=== PATIENT | male | born 1985 | race Caucasian/White ===

== ENCOUNTER 2023-10-10 19:21 | Emergency (ER) | payer OTHER, SELFPAY ==
[2023-10-10 19:22] VITALS: BP 158/91; PULSE 95; RESP 18; TEMP 36.6; O2SAT 98; BMI 27.5
--- NOTE | 2023-10-10 19:32 | EDS_ITS ---
HPI History of Present Illness Chief Complaint: Upper Extremity Injury Narrative Narrative: 38-year-old male past medical history of hypertension, more ambidextrous to [id number] presents with injury to his right fourth digit that he sustained at work. He was hitting the end of a wrench with a hammer and thinks that his fourth digit got pinched between the end of the hammer and the wrench. He hit the very tip and noticed a small laceration at the top. He put a Band- Aid on it, went home, took ibuprofen, and noticed that the laceration was still oozing . He denies other injury. He believes his tetanus immunization was within the last 5 years when he had stitches placed in his chin. He presents because of the injury to his right fourth fingertip. [facility] Medical History Hand crush injury Allergy/AdvReac Type Severity Reaction Status Date / Time No Known Allergies Allergy Verified 10/10/23 19:25 Social History Smoking Status: Smoker, status unknown ROS ROS ED ROS Narrative Constitutional: No fever, no chills. HEENT: No sore throat. No neck pain. No loss of vision. No rhinorrhea. Cardiovascular: No chest pain. No palpitations. No pedal edema. Respiratory: No cough, no shortness of breath. Abdominal: No abdominal pain. No nausea. No vomiting. Genitourinary: No dysuria. No hematuria. Musculoskeletal: No myalgias. Positive right fourth fingertip laceration and pain/throbbing after injury Neurologic: No headaches. No dizziness. No lightheadedness. Skin: No rash. No change in color. 0.5 cm laceration to tip of right fourth digit, no active bleeding. Psychiatric: No depression. No anxiety. EXAM Physical Exam Narrative Exam Narrative: Afebrile. Vital signs noted. HEENT: Normocephalic. Atraumatic. PERRL, EOMI. Neck soft and supple. No point tenderness or step off. Cardiovascular: Regular rate and rhythm. No murmurs, rubs, or gallops appreciated. Respiratory: No tachypnea. Lungs clear to auscultation bilaterally. Gastrointestinal: Abdomen soft, nontender, with normoactive bowel sounds. No rebound or guarding. Neurological: Awake. Alert. Nonfocal, nonlateralizing. Skin: No rash. Normal color. No pallor. 0.5 cm laceration to tip of right fourth digit, no active bleeding. Good capillary refill fourth digit. Small, there is some fungal hematoma, less than 10% nail. Musculoskeletal: No pedal edema. Full range of motion extremities. Const Vital Signs: 10/10/23 19:22 Temperature 97.8 F Temperature Source Temporal Pulse Rate 95 Respiratory Rate 18 Blood Pressure 158/91 H Blood Pressure Mean 113 Pulse Ox 98 Oxygen Delivery Method Room Air MDM MDM MDM Narrative Medical decision making narrative: In the differential diagnosis would be open tuft fracture versus fingertip contusion. Patient already took ibuprofen prior to arrival. X-rays were obtained of the right fourth digit and interpreted by myself independently. Regarding this 0.5 cm laceration, I do feel it is too small for laceration repair, and there is no active bleeding. He was told the risk of infections and scarring oncologist understanding. Will soak this finger here in the emergency department and his wound will be cleansed. Steri-Strips will be applied. X-rays of the finger interpreted by myself independently shows no evidence of fracture. I reviewed the radiology report which confirms my independent interpretation. After soaking his finger,'s wound was bandaged. I feel it is best left for secondary intent. He was told of the risk of infection and scarring and acknowledges an understanding. At this point in time, I asked again if he would like to file Workmen's Compensation, but he declined. He will follow-up with her primary care provider for a wound check in the next 3 to 5 days. Return instructions to the emergency department were reviewed. Disposition is discharged home in stable condition. Discharge Plan Triage Chief Complaint: Upper Extremity Injury ED Provider: Carlos Alberto Russo Dx/Rx/DC Orders Clinical Impression: Finger laceration, Crush injury Instructions: ED Crush Injury, Hand, ED Laceration, Hand: All Closures Primary Care Provider: Care Physician,No Primary Referrals: Donnie Colon MD [Med Staff - Active Staff] - 3-5 Days if not improving NOT,DEFINED [Non-Staff] - Disposition Disposition: Home, Self Care
--- NOTE | 2023-10-10 19:40 | RAD_ITS ---
STUDY: X-RAY - RIGHT HAND, ATTENTION FOURTH FINGER REASON FOR EXAM: Male, 38 years old. trauma -- Fourth digit tuft TECHNIQUE: 3 view(s) of the finger were obtained. COMPARISON: None. FINDINGS: Normal metacarpal head. Normal metacarpophalangeal joint. Normal proximal phalanx. Normal middle phalanx. Normal distal phalanx. Normal proximal interphalangeal joint. Normal distal interphalangeal joint. RAD/Finger(s) Min 2 Views IMPRESSION: Normal x-ray examination of the finger. Electronically Signed: Jaden Hawk MD at 20:33 EST ,
== END 2023-10-10 21:00 | disposition home or self-care (01) ==
PROVIDERS: Emergency Provider Emergency Medicine; Visit Provider Emergency Medicine
DX: S61.314A Laceration without foreign body of right ring finger with damage to nail, initial encounter (principal); W23.0XXA Caught, crushed, jammed, or pinched between moving objects, initial encounter; I10 Essential (primary) hypertension
CPT/HCPCS: 73140; 99282

== ENCOUNTER 2024-08-16 22:25 | Emergency (ER) | payer OTHER, SELFPAY ==
[2024-08-16 22:26] VITALS: BP 144/90; PULSE 116; RESP 18; TEMP 36.9; O2SAT 100; BMI 26.2
--- NOTE | 2024-08-16 23:03 | EDS_ITS ---
HPI History of Present Illness Chief Complaint: Back Informant: patient Narrative Narrative: 2 and half weeks left side lower back pain. Denies trauma. 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 He has had issues with back in the past. Called his PCP at that time was refilled his Flexeril. States symptoms are improving after 48 hours ago. She is not pain down left leg lateral thigh to the anterior leg. Last took his medications a few hours ago. No loss of bowel or bladder control. No weakness. Prior similar symptoms: Yes and With Prior [facility] Medical History Hand crush injury Home Medications ?Medication ?Instructions ?Recorded ?Last Taken ?Type gabapentin 300 mg capsule 300 mg PO QHS #30 caps 08/16/24 Unknown Rx prednisone 20 mg tablet 60 mg (3 x 20 mg) PO DAILY #15 08/16/24 Unknown Rx TABLETS Allergy/AdvReac Type Severity Reaction Status Date / Time No Known Allergies Allergy Verified 08/16/24 22:26 Social History Smoking Status: Smoker, status unknown ROS ROS ED Constitutional Constitutional ED: Denies chills, fever(s) or sweats ENT ENT ED: Denies sore throat Cardiovascular Cardiovascular: Denies chest pain, leg edema, palpitations or racing heartbeat Respiratory/Chest Respiratory/Chest: Denies cough, dyspnea or dyspnea on exertion Gastrointestinal Gastrointestinal: Denies abdominal pain, diarrhea, nausea or vomiting Genitourinary Genitourinary ED: Denies dysuria, hematuria or urinary frequency Musculoskeletal Musculoskeletal: Reports neck pain; Denies back pain or extremity pain Integumentary Denies rash or wounds Neurologic Neurologic: Reports paresthesias; Denies headache(s) or weakness EXAM Physical Exam Const Vital Signs: 08/16/24 22:26 08/16/24 23:34 Temperature 98.4 F 98.4 F Temperature Source Temporal Pulse Rate 116 H 116 H Respiratory Rate 18 18 Blood Pressure 144/90 H 144/90 H Blood Pressure Mean 108 108 Pulse Ox 100 100 Oxygen Delivery Method Room Air Positive well nourished and well developed General Appearance ED: well developed and NAD HEENT Reports moist mucous membranes normocephalic and atraumatic Eyes General Eye ED: Yes normal appearance of both eyes Neck full ROM Chest Wall Chest: Negative for tenderness Resp normal respiratory effort and normal air movement Effort and Inspection: symmetric chest movement; Negative for respiratory distress Cardio regular rhythm and no murmurs Rate: tachycardic Peripheral Pulses: pulses 2+ throughout GI normal to inspection, nondistended, normoactive bowel sounds and non-tender Palpation: Negative for guarding or rebound tenderness present Back/Spine Back/Spine Narrative: Left paralumbar tenderness, straight leg test was negative 1+ patellar reflex bilaterally. Extremity normal to inspection General Extremety ED: Negative for edema or tenderness General Extremity: Negative for edema Neuro oriented x3 and no sensory deficits noted Sensorium / Orientation: awake and alert Skin no rashes or lesions noted and no wounds MDM MDM MDM Narrative Medical decision making narrative: Interventions / MDM: Differential diagnosis: Sciatica, lumbar radiculopathy Diagnosis considered but do not suspect: No cauda equina symptoms My EKG interpretation: N/A Imaging independently reviewed and interpreted by myself: N/A External documents reviewed: N/A Test considered but not ordered:N/A ED course: Patient presenting with sciatica with lumbar radiculopathy on left side there is no weakness he was ambulated with no difficulties. Slight tachycardia on arrival likely due to his pain. He has no cauda equina symptoms. Do not feel emergent imaging is are necessary. Discussed additional conservative treatments medications. He started on prednisone and gabapentin at night. He is given Toradol IM in the ED. He will continue his NSAIDs and his muscle relaxer. Discussed importance follow-up with the PCP for reevaluation and further treatment options. All questions were answered. Re-evaluation: stable Disposition discussed with patient/family/significant other: Patient Case discussed with consulting clinician: N/A This note was generated with [employer]ing[employer] dictation software. It may contain incorrect words, spelling, and punctuation that were not noted in checking the note before signing. Discharge Plan Triage Chief Complaint: Back ED Provider: Clifton Merritt Dx/Rx/DC Orders Clinical Impression: Left-sided low back pain with sciatica, Lumbar strain Instructions: ED Sciatica Prescriptions: New prednisone 20 mg tablet 60 mg PO DAILY Qty: 15 0RF gabapentin 300 mg capsule 300 mg PO QHS Qty: 30 0RF Primary Care Provider: Martha Hill Referrals: Care Physician,No Primary [Non-Staff] - Activity Restrictions/Additional Instructions: Continue Tylenol Motrin. You have muscle relaxers at home. Take prednisone as prescribed. Use gabapentin as prescribed for your radicular pain. Follow-up with your doctor for reevaluation and further treatment options. Print Language: [place] Disposition Disposition: Home, Self Care Discharge Date/Time: 08/16/24 23:38
[2024-08-16] MEDS: Ketorolac 30 MG/ML Syringe IM (23:22)
[2024-08-16] MEDS: predniSONE 20 MG Tablet 60 MG PO (23:22)
[2024-08-16 23:34] VITALS: BP 144/90; PULSE 116; RESP 18; TEMP 36.9; O2SAT 100
== END 2024-08-16 23:38 | disposition home or self-care (01) ==
LOC: ED 23:05
PROVIDERS: Emergency Provider Emergency Medicine; Referring Provider Emergency Medicine; Visit Provider Emergency Medicine
DX: S39.012A Strain of muscle, fascia and tendon of lower back, initial encounter (principal); M54.16 Radiculopathy, lumbar region; M54.42 Lumbago with sciatica, left side; X58.XXXA Exposure to other specified factors, initial encounter; Z79.899 Other long term (current) drug therapy
CPT/HCPCS: 96372; 99282